=== PATIENT | male | born 1970 | race Two or more races ===

== ENCOUNTER 2025-03-05 02:43 | Observation (INO) | payer OTHER ==
[2025-03-05 02:56] VITALS: BMI 35.7
[2025-03-05] MEDS: ASPIRIN 325 MG TABLET PO ONE (03:12)
[2025-03-05] MEDS ORDERED: ASPIRIN 81 MG CHEWABLE TABLETS ONE (03:12)
[2025-03-05] MEDS: ASPIRIN 81 MG CHEWABLE TABLETS PO ONE (03:15)
[2025-03-05 03:23] LABS: ABSOLUTE IMMATURE GRANULOCYTES 0.03 x10^3/uL (0.0-0.031); BASOPHILS # 0.03 x10^3/uL (0.01-0.08); EOSINOPHIL % 1.2 % (0.8-7.0); EOSINOPHILS # 0.11 x10^3/uL (0.04-0.54); MCHC 33.8 g/dl (32.3-36.5); MEAN CELL VOLUME 79.6 fl (79.0-92.2); MEAN PLT VOLUME 9.4 fl (9.4-12.4); MONOCYTE # 0.57 x10^3/uL (0.30-0.82); MONOCYTE % 6.1 % (5.3-12.2); RDW 13.1 % (12.2-16.1)
[2025-03-05 03:43] LABS: INR 1.02 (0.83-1.09); PROTHROMBIN TIME (PATIENT) 11.2 SEC (9.7-13.0)
[2025-03-05 03:45] LABS: CO2 27.0 mmol/L (21-32); GLUCOSE,RANDOM 298.0 mg/dL (74-106)
[2025-03-05 03:46] LABS: ACTIVATED PTT 33.8 SECONDS (25.2-36.5)
[2025-03-05 03:48] LABS: CREATININE 1.1 mg/dL (0.55-1.3); SGOT/AST 29.0 U/L (15-37); SGPT/ALT 62.0 U/L (13-61)
[2025-03-05 03:50] LABS: TOT PROT 8.3 g/dl (6.4-8.2)
[2025-03-05 03:51] LABS: ALK PHOS 129.0 U/L (45-117)
[2025-03-05 04:37] LABS: HIV INTERPRETATION NEGATIVE (NEGATIVE)
[2025-03-05 04:38] LABS: HCV DIAGNOSTIC IN-HOUSE W/RFLX NON-REACTIVE (NONREACTIVE)
[2025-03-05] MEDS ORDERED: ACETAMINOPHEN INJECTION 100 ML ONE (05:34)
[2025-03-05] MEDS: ACETAMINOPHEN 1000 MG/100 ML BAG IVPB ONE (05:38)
[2025-03-05] MEDS ORDERED: morphine CARPU-JECT 2 MG/1 ML DISP.SYRIN IVPUSH PRN (05:41)
[2025-03-05] MEDS ORDERED: NITROGLYCERIN SUBLINGUAL 1/150 0.4 MG TAB SL PRN (05:44)
[2025-03-05] MEDS ORDERED: ALBUTEROL SO4 0.083% IH SOL 2.5 MG/3 ML VIAL.NEB. NEB PRN (06:12)
[2025-03-05] MEDS ORDERED: ALBUTEROL SO4 2.5/IPRATROPIUM 0.5 INH SOL 3 ML VIAL.NEB. NEB ONE (06:21)
[2025-03-05] MEDS: ALBUTEROL SO4 2.5/IPRATROPIUM 0.5 INH SOL 3 ML VIAL.NEB. NEB SCH (06:25)
[2025-03-05] MEDS ORDERED: PANTOPRAZOLE 40 MG TABLET PO ONE (07:24)
[2025-03-05] MEDS: PANTOPRAZOLE 40 MG TABLET PO SCH (07:30)
[2025-03-05] MEDS: INSULIN ASPART SLIDING SCALE (NOVOLOG) 1 VIAL SQ SCH (08:53)
[2025-03-05] MEDS ORDERED: INSULIN ASPART SLIDING SCALE (NOVOLOG) 1 VIAL SQ ONE (08:54)
[2025-03-05] MEDS ORDERED: amLODIPine BESYLATE 5 MG TABLET (FP) PO SCH (10:00)
[2025-03-05] MEDS ORDERED: LOSARTAN POTASSIUM 50 MG TABLET ONE (10:45)
[2025-03-05] MEDS: LOSARTAN POTASSIUM 50 MG TABLET PO SCH (10:49)
[2025-03-05 11:24] LABS: LDL CHOLESTEROL (ONLY SJRH) 156 mg/dL (5-100)
[2025-03-05 12:21] VITALS: BP 137/72; PULSE 87; RESP 16; TEMP 98
[2025-03-05] MEDS: ENOXAPARIN NA (PORCINE) 40 MG/0.4 ML DISP.SYRIN SQ SCH (12:42)
[2025-03-05] MEDS: ASPIRIN COATED 81 MG TABLET.EC PO SCH (13:05)
[2025-03-05] MEDS ORDERED: ATORVASTATIN CA 40 MG TABLET (FP) PO SCH (22:00)
== END 2025-03-05 13:30 | disposition home or self-care (01) ==
LOC: JER 02:43 → JERBED 05:30
PROVIDERS: ADMIT Hospitalist; ATTEND Internal Medicine
DX: R07.89 Other chest pain (principal); R06.09 Other forms of dyspnea; R00.1 Bradycardia, unspecified; I10 Essential (primary) hypertension; E11.9 Type 2 diabetes mellitus without complications; E78.5 Hyperlipidemia, unspecified; Z79.84 Long term (current) use of oral hypoglycemic drugs
CPT/HCPCS: 36415; 71275-TC; 74174-TC; 76705-TC; 80053; 80061; 82962; 83036; 84484; 85025; 85610; 85730; 86803; 86850; 86900; 86901; 87389; 93005; 93010; 93306-TC; 96372; 96374; 99285-25; G0378; Q9967